=== PATIENT | male | born 1990 | race American Indian/Alaskan Native ===

== ENCOUNTER 2017-02-03 19:51 | Emergency (ER) | payer SELFPAY ==
[2017-02-03 21:10] VITALS: BP 150/89
--- NOTE | 2017-02-08 09:17 | ED Elopement Review ---
ED Pt Elopement review - Results review Lab results: throat culture + group A strep - Call Back decision Pt Call Back Decision: Pt to F/U with PMD (for treatment of strep throat)
== END 2017-02-03 21:15 ==
LOC: ED 19:51
DX: R07.0 Pain in throat (principal); Z53.21 Procedure and treatment not carried out due to patient leaving prior to being seen by health care provider
CPT/HCPCS: 87116; 87430

== ENCOUNTER 2019-04-06 04:50 | Emergency (ER) | payer SELFPAY ==
[2019-04-06] MEDS ORDERED: ATIVAN IV ONE (05:30)
[2019-04-06] MEDS ORDERED: NACL 0.9% 1000 ML 1,000 ML IV ONE (05:30)
--- NOTE | 2019-04-06 05:40 | Emergency Department Report ---
ED Palpitations HPI - General Chief Complaint: Arrhythmia/Palpitations Stated Complaint: ACCELERATED HEART RATE Time Seen by Provider: 04/06/19 05:28 Source: patient, EMS Mode of arrival: Ambulatory Limitations: No Limitations - History of Present Illness Initial Comments: Vision is a 28-year-old male who bought a pill from a friend stated that the pill was Percocet however the patient developed tachycardia palpitations afterwards. Patient states he felt very nervous after initially taking a pill this is calm down. Patient is continued to have palpitations. Patient denies chest pain shortness of breath or syncope at this time. - Related Data Home Medications Medication Instructions Recorded Confirmed Last Taken Cyclobenzaprine [Flexeril 10mg] 10 mg PO TID 02/28/14 02/28/14 02/27/14 20:00 Ibuprofen [Motrin] 600 mg PO TID 02/28/14 02/28/14 02/27/14 20:00 Previous Rx's Medication Instructions Recorded Last Taken Type HYDROcodone/APAP 5-325 [Sumerco 1 each PO Q8HR PRN #21 tablet 02/28/14 Unknown Rx 5-325 mg TAB] Acetaminophen/Codeine [Tylenol #3] 1 tab PO TID PRN #15 tab 03/13/15 Unknown Rx methOCARBAMOL [Robaxin TAB] 500 mg PO BID #30 tab 03/13/15 Unknown Rx Allergies Allergy/AdvReac Type Severity Reaction Status Date / Time Penicillins Allergy Hives Verified 02/28/14 02:53 ED Review of Systems ROS: Stated complaint: ACCELERATED HEART RATE Other details as noted in HPI Comment: All other systems reviewed and negative ED Past Medical Hx - Past Medical History Previous Medical History?: Yes Hx Asthma: Yes - Surgical History Past Surgical History?: No - Social History Smoking Status: Never Smoker Substance Use Type: Alcohol - Medications Home Medications: Home Medications Medication Instructions Recorded Confirmed Last Taken Type Cyclobenzaprine [Flexeril 10mg] 10 mg PO TID 02/28/14 02/28/14 02/27/14 20:00 History HYDROcodone/APAP 5-325 [Sumerco 1 each PO Q8HR PRN #21 tablet 02/28/14 Unknown Rx 5-325 mg TAB] Ibuprofen [Motrin] 600 mg PO TID 02/28/14 02/28/14 02/27/14 20:00 History Acetaminophen/Codeine [Tylenol #3] 1 tab PO TID PRN #15 tab 03/13/15 Unknown Rx methOCARBAMOL [Robaxin TAB] 500 mg PO BID #30 tab 03/13/15 Unknown Rx ED Physical Exam - General Limitations: No Limitations General appearance: alert, in no apparent distress - Head Head exam: Present: atraumatic, normocephalic - Eye Eye exam: Present: normal appearance - ENT ENT exam: Present: mucous membranes moist - Neck Neck exam: Present: normal inspection - Respiratory Respiratory exam: Present: normal lung sounds bilaterally. Absent: respiratory distress, wheezes, rales, rhonchi - Cardiovascular Cardiovascular Exam: Present: regular rate, normal rhythm, tachycardia. Absent: systolic murmur, diastolic murmur, rubs, gallop - GI/Abdominal GI/Abdominal exam: Present: soft, normal bowel sounds. Absent: distended, tenderness, guarding, rebound - Rectal Rectal exam: Present: deferred - Extremities Exam Extremities exam: Present: normal inspection - Back Exam Back exam: Present: normal inspection - Neurological Exam Neurological exam: Present: alert, oriented X3 - Psychiatric Psychiatric exam: Present: normal affect, normal mood - Skin Skin exam: Present: warm, dry, intact, normal color. Absent: rash ED Course Vital Signs 04/06/19 04/06/19 04/06/19 05:00 05:01 05:15 Temperature 98.1 F Pulse Rate 119 H 121 H 121 H Respiratory 16 17 12 Rate Blood Pressure 151/78 151/78 151/78 O2 Sat by Pulse 99 98 97 Oximetry ED Medical Decision Making - Medical Decision Making Drug screen is been ordered for the patient's education. Patient has a simple s inus tachycardia 117 per his EKG. Patient given Ativan and IV fluids will be stable for discharge and fluids infuse Critical care attestation.: If time is entered above; I have spent that time in minutes in the direct care of this critically ill patient, excluding procedure time. ED Disposition Clinical Impression: Tachycardia Drug intoxication Qualifiers: Complication of substance-induced condition: uncomplicated Qualified Code(s): F19.920 - Other psychoactive substance use, unspecified with intoxication, uncomplicated Disposition: DC-01 TO HOME OR SELFCARE Is pt being admited?: No Does the pt Need Aspirin: No Condition: Stable Referrals: PRIMARY CARE, [Primary Care Provider] - 3-5 Days Time of Disposition: 05:39
--- NOTE | 2019-04-06 05:47 | XRay Report ---
CHEST 1 VIEW 04/06/2019 5:10 AM INDICATION / CLINICAL INFORMATION: palpitations. COMPARISON: None available. FINDINGS: SUPPORT DEVICES: None. HEART / MEDIASTINUM: No significant abnormality. LUNGS / PLEURA: No significant pulmonary or pleural abnormality. No pneumothorax. ADDITIONAL FINDINGS: No significant additional findings. IMPRESSION: 1. No acute findings. Signer Name: Brown Werner MD Signed: 04/06/2019 5:43 AM Workstation Name: [id number]
[2019-04-06 06:02] LABS: Amphetamine Screen,Urine PRESUMPTIVE NEGATIVE; Benzodiazepines Screen,Urine PRESUMPTIVE NEGATIVE; Cocaine Screen,Urine PRESUMPTIVE NEGATIVE; Methadone Screen,Urine PRESUMPTIVE NEGATIVE; Opiate Screen,Urine PRESUMPTIVE NEGATIVE
[2019-04-06 06:28] LABS: Cannabinoid Screen,Urine PRESUMPTIVE POSITIVE
[2019-04-06 07:08] VITALS: BP 120/54
== END 2019-04-06 06:35 | disposition home or self-care (01) ==
LOC: ED 04:50
DX: R00.0 Tachycardia, unspecified (principal); F19.929 Other psychoactive substance use, unspecified with intoxication, unspecified; J45.909 Unspecified asthma, uncomplicated; Z88.0 Allergy status to penicillin
CPT/HCPCS: 71045; 80307; 93005; 93010; 96361; 96374; 99284; J2060; J7030